=== PATIENT | female | born 1970 | race Caucasian/White ===

== ENCOUNTER 2018-11-14 13:14 | Outpatient (CLI) | payer OTHER ==
[~2018-11-14 13:14] MED LIST: CETI10CA PO; THYR60TA PO; VILA40TA PO; ZOLP10TA PO
== END 2018-11-14 23:59 | disposition home or self-care (01) ==
LOC: CFH 13:14
PROVIDERS: ATTEND Family Medicine
DX: N64.4 Mastodynia (principal); Z80.3 Family history of malignant neoplasm of breast
CPT/HCPCS: 77066; G0279